=== PATIENT | female | born 1990 | race Caucasian/White ===

== ENCOUNTER 2017-03-22 07:11 | Emergency (ER) | payer OTHER ==
[2017-03-22 07:18] VITALS: BP 134/90
[2017-03-22] MEDS ORDERED: POLY10DR3 EACHEYE (07:38)
--- NOTE | 2017-03-22 07:38 | PHYS DOC ---
Past History Past Medical History: No Pertinent History Past Surgical History: No Surgical History Alcohol Use: None Drug Use: None Adult General Chief Complaint Chief Complaint: EYE PROBLEMS HPI HPI Patient is a 26-year-old female who presents with 2 days of redness of both eyes , last night started having some discharge from the eyes. The patient works nights. The patient had a cold about 2 weeks ago, cold symptoms are about gone. Other family members have had cold symptoms. No one else at home has had conjunctivitis. Patient does work nights as an inpatient RN and does not believe she's been exposed to anyone with a contagious illness or conjunctivitis. She does have contact lenses but is currently wearing glasses. She does not feel sick. No other complaints. Patient is breast-feeding. No chronic medical problems. Review of Systems Review of Systems Constitutional: Denies fever or chills [] Eyes: Denies change in visual acuity, otherwise as in history of present illness HENT: Recent URI symptoms that have resolved Physical Exam Physical Exam Constitutional: Well developed, well nourished, no acute distress, non-toxic appearance. Alert, mentating normally. HENT: Normocephalic, atraumatic, bilateral external ears normal, bilateral TMs normal, nose normal. [] Eyes: Bilateral eyes with moderate amount of conjunctival injection. Corneas are clear. Eyelids upper and lower are normal. Small to moderate amount of discharge in the left inner canthus. Neck: Normal range of motion, no stridor. [] Skin: Warm, dry, no erythema, no rash. [] Extremities: No tenderness, no cyanosis, no clubbing, ROM intact, no edema. [] Neurologic: Alert and oriented X 3, normal motor function, normal sensory function, no focal deficits noted. [] Current Patient Data Vital Signs Vital Signs Date Time Temp Pulse Resp B/P (MAP) Pulse Ox O2 Delivery O2 Flow Rate FiO2 03/22/17 07:18 97.9 76 16 96 Room Air EKG EKG [] Radiology/Procedures Radiology/Procedures [] Course & Med Decision Making Course & Med Decision Making Pertinent Labs and Imaging studies reviewed. (See chart for details) 26-year-old female presents with conjunctivitis that is likely viral but could be bacterial. See instructions for plan. [] Dragon Disclaimer Dragon Disclaimer This chart was dictated in whole or in part using Voice Recognition software in a busy, high-work load, and often noisy Emergency Department environment. It may contain unintended and wholly unrecognized errors or omissions. Departure Departure: Impression: Primary Impression: Conjunctivitis Disposition: 01 HOME, SELF-CARE Condition: STABLE Referrals: EDEN NICE JR, MD (PCP) Patient Instructions: Conjunctivitis (Viral and Bacterial) Additional Instructions: As we discussed, "pinkeye" is the term for conjunctivitis, which means inflamed conjunctiva. Many things can cause conjunctivitis. In your case, it appears that you have an infectious cause of your conjunctivitis. It might be viral or it might be bacterial. Conjunctivitis caused by virus or bacteria is contagious if you touch your eyes or the secretions from your eyes and then touched someone else. If you practice good contact/handwashing techniques, wear glasses and consider wearing a face mask with a eye shield when in direct patient contact, you should not have a problem with spreading the conjunctivitis. In case your conjunctivitis is caused by a bacteria, we will start antibiotic eyedrops and eye ointment. Use eyedrops every 2-4 hours while awake. Use eye ointment at bedtime. It will last longer and is more soothing. You may also use Visine [id number] for red eyes, it is a safe topical decongestant. Cold compresses for comfort. If this is a virus that may last a week or 2. Continue to practice very good handwashing and contact precautions during that time. If your vision is not normal, recheck with your eye doctor. Do not wear contact lenses until you have been completely better for several days. Scripts Polymyxin B Sulf/Trimethoprim (POLYMYXIN B-TMP EYE DROPS) 10 Ml Drops 2 DROP EACHEYE Q2HR W/A for conjunctivitis, #10 ML Prov: SREE REED MD 03/22/17 SREE REED MD Mar 22, 2017 07:38
[2017-03-22] MEDS ORDERED: BACITRACIN/POLYMYXIN B OPHTH OINTMENT 3.5GM TUBE. OU ONE (07:45)
[2017-03-22] MEDS ORDERED: POLYMYXIN/TRIMETHOPRIM OPHTH SOLUTION 10ML BOTTLE. OU ONE (07:45)
== END 2017-03-22 07:43 | disposition home or self-care (01) ==
LOC: ER 07:11
DX: H10.9 Unspecified conjunctivitis (principal)
CPT/HCPCS: 99283

== ENCOUNTER → 2018-04-28 | Outpatient (CLI) | payer OTHER ==
[~2018-04-28] MED LIST: POLY10DR3 EACHEYE
[2018-04-29 14:02] LABS: FREE T4 0.98 ng/dL (0.76-1.46); THYROID STIM HORMONE (TSH) 1.946 uIU/mL (0.358-3.740)
== END | disposition home or self-care (01) ==
LOC: PMG 14:31
PROVIDERS: ATTEND Neuromusculoskeletal Medicine & OMM
DX: E04.1 Nontoxic single thyroid nodule (principal)
CPT/HCPCS: 84439; 84443

== ENCOUNTER → 2018-05-01 | Outpatient (CLI) | payer OTHER ==
--- NOTE | 2018-05-01 11:04 | RAD ---
EXAM: Thyroid sonogram. HISTORY: Thyroid nodule. TECHNIQUE: Sonographic imaging of the thyroid was performed. COMPARISON: None. FINDINGS: The right thyroid lobe measures 5.3 x 1.6 x 1.8 cm. The left thyroid lobe measures 4.6 x 1.5 x 1.4 cm. The thyroid isthmus measures 3.6 mm. The thyroid parenchyma is diffusely heterogeneous. No discrete nodule is seen. IMPRESSION: 1. Diffusely heterogeneous thyroid parenchyma. This can be seen as a sequela of thyroiditis. 2. No discrete thyroid nodule. Electronically signed by: Marivel Burleson MD (05/01/2018 11:00 AM) [place] [id number]
== END | disposition home or self-care (01) ==
LOC: US 10:33
PROVIDERS: ATTEND Neuromusculoskeletal Medicine & OMM
DX: E04.1 Nontoxic single thyroid nodule (principal)
CPT/HCPCS: 76536

== ENCOUNTER → 2018-09-03 | Outpatient (CLI) | payer OTHER ==
[2018-09-03 15:23] LABS: ALBUMIN 4.2 g/dL (3.4-5.0); ALBUMIN/GLOBULIN RATIO 1.2 (1.0-1.7); CALCIUM 9.3 mg/dL (8.5-10.1); CREATININE 0.8 mg/dL (0.6-1.0); GFR 86.7; POTASSIUM 4.3 mmol/L (3.5-5.1); TOTAL BILIRUBIN 0.3 mg/dL (0.2-1.0); TOTAL PROTEIN 7.8 g/dL (6.4-8.2)
[2018-09-03 15:27] LABS: BASO # 0.1 x10^3/uL (0.0-0.2); BASO % 1 % (0-3); EOS # 0.2 x10^3/uL (0.0-0.7); EOS % 2 % (0-3); HEMATOCRIT 40.9 % (36.0-47.0); HEMOGLOBIN 13.8 g/dL (12.0-15.5); LYMPH % 27 % (24-48); MEAN CORPUSCULAR HEMOGLOBIN 28 pg (25-35); MEAN CORPUSCULAR HGB CONC 34 g/dL (31-37); MEAN CORPUSCULAR VOLUME 84 fL (79-100); MONO # 0.4 x10^3/uL (0.0-1.1); MONO % 5 % (0-9); NEUT # 4.9 x10^3uL (1.8-7.7); NEUT % 65 % (31-73); PLATELET COUNT 374 x10^3/uL (140-400); RED BLOOD COUNT 4.85 x10^6/uL (3.50-5.40); RED CELL DISTRIBUTION WIDTH 14.6 % (11.5-14.5); WHITE BLOOD COUNT 7.5 x10^3/uL (4.0-11.0)
[2018-09-03 16:22] LABS: CLARITY,URINE HAZY; COLOR,URINE STRAW; GLUCOSE,URINE NEG (NEG)
[2018-09-03 16:23] LABS: BILIRUBIN,URINE NEG (NEG); NITRITE,URINE NEG (NEG); UROBILINOGEN,URINE 0.2 mg/dL (0.2 mg/dL); WBC,URINE OCC /HPF (0-4)
[2018-09-03 16:24] LABS: BACTERIA,URINE MOD /HPF (0-FEW); SQUAMOUS EPITHELIAL CELL,UR MOD /LPF
== END | disposition home or self-care (01) ==
LOC: LAB 14:35
PROVIDERS: ATTEND Registered Nurse
DX: Z13.6 Encounter for screening for cardiovascular disorders (principal)
CPT/HCPCS: 36415; 80053; 80061; 81001; 85025; 87086

== ENCOUNTER → 2018-11-30 | Outpatient (CLI) | payer OTHER ==
[2018-11-30 14:34] LABS: CALCIUM 9.6 mg/dL (8.5-10.1); POTASSIUM 4.1 mmol/L (3.5-5.1)
[2018-12-01 13:03] LABS: FREE T4 0.97 ng/dL (0.76-1.46); THYROID STIM HORMONE (TSH) 1.521 uIU/mL (0.358-3.740)
== END | disposition home or self-care (01) ==
LOC: PMG 13:47
PROVIDERS: ATTEND Registered Nurse
DX: R20.2 Paresthesia of skin (principal)
CPT/HCPCS: 36415; 80048; 82607; 83735; 84439; 84443

== ENCOUNTER → 2019-04-14 | Outpatient (CLI) | payer OTHER ==
[2019-04-14 12:26] LABS: BASO # 0.1 x10^3/uL (0.0-0.2); BASO % 1 % (0-3); EOS # 0.1 x10^3/uL (0.0-0.7); EOS % 1 % (0-3); HEMATOCRIT 37.2 % (36.0-47.0); HEMOGLOBIN 12.8 g/dL (12.0-15.5); LYMPH # 1.8 x10^3/uL (1.0-4.8); LYMPH % 16 % (24-48); MEAN CORPUSCULAR HEMOGLOBIN 29 pg (25-35); MEAN CORPUSCULAR HGB CONC 34 g/dL (31-37); MEAN CORPUSCULAR VOLUME 86 fL (79-100); MONO # 0.6 x10^3/uL (0.0-1.1); MONO % 5 % (0-9); NEUT # 8.9 x10^3uL (1.8-7.7); NEUT % 78 % (31-73); PLATELET COUNT 290 x10^3/uL (140-400); RED BLOOD COUNT 4.34 x10^6/uL (3.50-5.40); RED CELL DISTRIBUTION WIDTH 14.3 % (11.5-14.5); WHITE BLOOD COUNT 11.4 x10^3/uL (4.0-11.0)
== END | disposition home or self-care (01) ==
LOC: LAB 11:56
PROVIDERS: ATTEND Obstetrics & Gynecology
DX: Z32.01 Encounter for pregnancy test, result positive (principal)
CPT/HCPCS: 85025; 86592; 86703; 86706; 86762; 86850; 86900; 86901; 87340

== ENCOUNTER → 2019-07-14 | Outpatient (CLI) | payer OTHER ==
--- NOTE | 2019-07-14 13:17 | RAD ---
Examination: PREG MORE THAN OR EQ TO 14 WKS History: Anatomic survey Comparison/Correlation: None Findings: Single living intrauterine gestation is present without rate of 143 bpm. Posterior located grade 1 placenta is present. Breech lie is noted. Anatomic structures identified include: Three-vessel cord and its insertion, four-chamber heart fluid in the urinary bladder, stomach, kidneys, spine, and brain. movement including cardiac activity also seen. breathing noted. lips and nose identified. Bilateral upper and bilateral lower extremities are visualized. Normal quantity amniotic fluid identified. Estimated weight is 324 g. Biparietal diameter 4.4 cm corresponds to 19 weeks 3 days. Ad circumference is 17.6 cm corresponding to 20 weeks 0 days. Abdominal circumference is 14.3 cm corresponding to 19 weeks 5 days. Femur length is 3.3 cm corresponding to 20 weeks 2 days. Head circumference abdominal circumference ratio is 1.23. Average ultrasound age of 19 weeks 6 days identified. Ultrasound EDC is 12/02/2019. Impression: Single living intrauterine gestation with average ultrasound age of 19 weeks 6 days. Electronically signed by: Tano Burk MD (07/14/2019 1:14 PM) [facility]
== END | disposition home or self-care (01) ==
LOC: US 09:15
PROVIDERS: ATTEND Obstetrics & Gynecology
DX: O26.842 Uterine size-date discrepancy, second trimester (principal); Z3A.19 19 weeks gestation of pregnancy
CPT/HCPCS: 76805

== ENCOUNTER → 2020-12-20 | Outpatient (CLI) | payer OTHER ==
[2020-12-20 08:51] LABS: BASO % 1 % (0-3); EOS # 0.1 x10^3/uL (0.0-0.7); EOS % 2 % (0-3); HEMATOCRIT 39.6 % (36.0-47.0); HEMOGLOBIN 13.4 g/dL (12.0-15.5); LYMPH # 1.4 x10^3/uL (1.0-4.8); LYMPH % 22 % (24-48); MEAN CORPUSCULAR HEMOGLOBIN 29 pg (25-35); MEAN CORPUSCULAR HGB CONC 34 g/dL (31-37); MEAN CORPUSCULAR VOLUME 86 fL (79-100); MONO # 0.5 x10^3/uL (0.0-1.1); MONO % 8 % (0-9); NEUT # 4.3 x10^3uL (1.8-7.7); NEUT % 68 % (31-73); PLATELET COUNT 277 x10^3/uL (140-400); RED BLOOD COUNT 4.63 x10^6/uL (3.50-5.40); RED CELL DISTRIBUTION WIDTH 13.8 % (11.5-14.5); WHITE BLOOD COUNT 6.4 x10^3/uL (4.0-11.0)
[2020-12-20 08:53] LABS: ALBUMIN 4.1 g/dL (3.4-5.0); CALCIUM 9.1 mg/dL (8.5-10.1); CREATININE 0.9 mg/dL (0.6-1.0); POTASSIUM 3.9 mmol/L (3.5-5.1); TOTAL BILIRUBIN 0.4 mg/dL (0.2-1.0); TOTAL PROTEIN 8.1 g/dL (6.4-8.2)
[2020-12-26 09:31] LABS: RUBELLA IGG ANTIBODY 1.24 index (Immune >0.99)
== END ==
LOC: LAB 07:22
PROVIDERS: ATTEND Nurse Practitioner Gerontology
DX: Z00.00 Encounter for general adult medical examination without abnormal findings (principal)
CPT/HCPCS: 36415; 80053; 80061; 85025; 86658; 86704; 86735; 86762; 86765; 86787

== ENCOUNTER → 2021-01-16 | Outpatient (CLI) | payer OTHER | LOC: LAB 11:08 | PROVIDERS: ATTEND Emergency Medicine | DX: Z71.2 Person consulting for explanation of examination or test findings (principal) | CPT/HCPCS: 86706 ==

== ENCOUNTER → 2021-05-03 | Outpatient (CLI) | payer OTHER ==
[2021-05-04 03:07] LABS: IMMUNOGLOBULIN A 201 mg/dL (87-352); IMMUNOGLOBULIN G 1174 mg/dL (586-1602); IMMUNOGLOBULIN M 148 mg/dL (26-217)
== END ==
LOC: LAB 09:01
PROVIDERS: ATTEND Obstetrics & Gynecology
DX: O09.90 Supervision of high risk pregnancy, unspecified, unspecified trimester (principal); Z3A.00 Weeks of gestation of pregnancy not specified; F32.9 Major depressive disorder, single episode, unspecified
CPT/HCPCS: 36415; 82306; 82784

== ENCOUNTER → 2021-06-01 | Outpatient (CLI) | payer OTHER ==
[2021-06-01 08:53] LABS: BASO % 0 % (0-3); EOS # 0.1 x10^3/uL (0.0-0.7); EOS % 1 % (0-3); HEMATOCRIT 33.5 % (36.0-47.0); HEMOGLOBIN 11.1 g/dL (12.0-15.5); LYMPH # 1.6 x10^3/uL (1.0-4.8); LYMPH % 15 % (24-48); MEAN CORPUSCULAR HEMOGLOBIN 28 pg (25-35); MEAN CORPUSCULAR HGB CONC 33 g/dL (31-37); MEAN CORPUSCULAR VOLUME 84 fL (79-100); MONO # 0.4 x10^3/uL (0.0-1.1); MONO % 4 % (0-9); NEUT # 8.7 x10^3uL (1.8-7.7); NEUT % 79 % (31-73); PLATELET COUNT 303 x10^3/uL (140-400); WHITE BLOOD COUNT 10.9 x10^3/uL (4.0-11.0)
== END ==
LOC: LAB 06:53
PROVIDERS: ATTEND Obstetrics & Gynecology
DX: Z34.92 Encounter for supervision of normal pregnancy, unspecified, second trimester (principal)
CPT/HCPCS: 36415; 82950; 85025; 86850; 86900; 86901

== ENCOUNTER → 2021-12-26 | Outpatient (CLI) | payer BC ==
[2021-12-26 08:41] LABS: BASO % 1 % (0-3); EOS # 0.2 x10^3/uL (0.0-0.7); EOS % 2 % (0-3); HEMATOCRIT 40.5 % (36.0-47.0); HEMOGLOBIN 13.4 g/dL (12.0-15.5); LYMPH # 1.8 x10^3/uL (1.0-4.8); LYMPH % 24 % (24-48); MEAN CORPUSCULAR HEMOGLOBIN 27 pg (25-35); MEAN CORPUSCULAR HGB CONC 33 g/dL (31-37); MEAN CORPUSCULAR VOLUME 81 fL (79-100); MONO # 0.5 x10^3/uL (0.0-1.1); MONO % 7 % (0-9); NEUT # 5.1 x10^3uL (1.8-7.7); NEUT % 67 % (31-73); PLATELET COUNT 301 x10^3/uL (140-400); RED BLOOD COUNT 4.99 x10^6/uL (3.50-5.40); RED CELL DISTRIBUTION WIDTH 18.6 % (11.5-14.5); WHITE BLOOD COUNT 7.6 x10^3/uL (4.0-11.0)
[2021-12-26 08:50] LABS: ALBUMIN 4.2 g/dL (3.4-5.0); ALBUMIN/GLOBULIN RATIO 1.2 (1.0-1.7); CALCIUM 9.8 mg/dL (8.5-10.1); CREATININE 0.9 mg/dL (0.6-1.0); GFR 73.5; POTASSIUM 4.3 mmol/L (3.5-5.1); TOTAL BILIRUBIN 0.3 mg/dL (0.2-1.0); TOTAL PROTEIN 7.8 g/dL (6.4-8.2)
[2021-12-26 21:03] LABS: CHOLESTEROL/HDL RATIO 3.8; THYROID STIM HORMONE (TSH) 0.338 uIU/mL (0.358-3.740)
== END ==
LOC: LAB 08:00
PROVIDERS: ATTEND Nurse Practitioner
DX: Z00.00 Encounter for general adult medical examination without abnormal findings (principal); R53.83 Other fatigue
CPT/HCPCS: 36415; 80053; 80061; 84443; 85025